=== PATIENT | female | born 1990 | race American Indian/Alaskan Native ===

== ENCOUNTER 2021-09-24 20:50 | Outpatient (CLI) | payer BC, OTHER ==
[2021-09-24 21:30] VITALS: BP 133/80
--- NOTE | 2021-09-24 23:33 | Ultrasound Report ---
ULTRASOUND OBSTETRIC LIMITED ULTRASOUND BIOPHYSICAL PROFILE INDICATION / CLINICAL INFORMATION: well being. Clinical Gestational Age (GA) in weeks, days: 37, 4 TECHNIQUE: Transabdominal. COMPARISON: None available. FINDINGS: BREATHING MOVEMENT = 2 GROSS BODY MOVEMENT = 2 TONE = 2 QUALITATIVE AMNIOTIC FLUID VOLUME = 2 TOTAL BIOPHYSICAL SCORE = 8/8 HEART RATE (beats per minute): 123 PRESENTATION: Cephalic. ADDITIONAL FINDINGS: None. IMPRESSION: 1. Biophysical Score = 8/8 Signer Name: Paolo Berman DO Signed: 09/24/2021 11:29 PM Workstation Name: [id number]
== END 2021-09-24 23:00 | disposition home or self-care (01) ==
LOC: TRG 20:50 → APU 20:52 → TRG 23:00
PROVIDERS: ATTEND Student in an Organized Health Care Education/Training Program
DX: O26.893 Other specified pregnancy related conditions, third trimester (principal); R10.9 Unspecified abdominal pain; Z3A.37 37 weeks gestation of pregnancy
CPT/HCPCS: 76819

== ENCOUNTER 2021-12-21 08:10 | Day surgery (SDC) | payer BC, OTHER ==
[2021-12-21] MEDS ORDERED: SODIUM CHLORIDE 0.9% 1000 ML 1,000 ML ONE (08:35)
--- NOTE | 2021-12-21 08:47 | Anesthesia Day of Surgery ---
Anesthesia Day of Surgery - Day of Surgery Patient Examined: Yes Patient H&P Reviewed: Yes Patient is NPO: Yes
--- NOTE | 2021-12-21 08:48 | Anesthesia Consultation ---
Anesthesia Consult and Med Hx Date of service: 12/21/21 - Airway Anesthetic Teeth Evaluation: Good ROM Head & Neck: Adequate Mental/Hyoid Distance: Adequate Mallampati Class: Class II Intubation Access Assessment: Good - Pre-Operative Health Status ASA Pre-Surgery Classification: ASA1 Proposed Anesthetic Plan: General - Pulmonary Hx Smoking: Yes (Cigerettes now vapes only) Hx Asthma: No Hx Respiratory Symptoms: No SOB: No COPD: No Hx Pneumonia: No Hx Sleep Apnea: No - Cardiovascular System Hx Hypertension: No Hx Coronary Artery Disease: No Hx Heart Attack/AMI: No Hx Angina: No Hx Percutaneous Transluminal Coronary Angioplasty (PTCA): No Hx Cardia Arrhythmia: No Hx Pacemaker: No Hx Internal Defibrillator: No Hx Valvular Heart Disease: No Hx Heart Murmur: No Hx Peripheral Vascular Disease: No - Central Nervous System Hx Neuromuscular Disorder: No Hx Seizures: No CVA: No Hx Back Pain: No Hx Psychiatric Problems: No - Gastrointestinal Hx Ulcer: No Hx Gastroesophageal Reflux Disease: No - Endocrine Hx Renal Disease: No Hx End Stage Renal Disease: No Hx Cirrhosis: No Hx Liver Disease: No Hx Insulin Dependent Diabetes: No Hx Non-Insulin Dependent Diabetes: No Hx Thyroid Disease: No Hx Hypothyroidism: No Hx Hyperthyroidism: No - Hematic Hx Anemia: No Hx Sickle Cell Disease: No - Other Systems Hx Alcohol Use: Yes (wine occas) Hx Substance Use: No Hx Cancer: No Hx Obesity: Yes
--- NOTE | 2021-12-21 08:50 | History and Physical Report ---
History of Present Illness Date of examination: 12/17/21 Date of admission: 12/21/2021 Chief complaint: Here for surgery History of present illness: Patient is a with desire for permanent sterilization presenting for bilateral salpingectomy. Voices no complaints today. Understands this is a permanent procedure and desires to proceed. Denies fevers, chills, chest pain, and SOB. Past History Past Medical History: no pertinent history Past Surgical History: D&C, other (foot) Family/Genetic History: none Social history: no significant social history - Obstetrical History : 6 Medications and Allergies Allergies Allergy/AdvReac Type Severity Reaction Status Date / Time No Known Allergies Allergy Unverified 12/11/21 17:58 Home Medications Medication Instructions Recorded Confirmed Last Taken Type No Known Home Medications [No 12/11/21 12/11/21 Unknown History Reported Home Medications] Active Meds: Active Medications Acetaminophen (Acetaminophen 500 Mg Tab) 1,000 mg PO ONCE ONE Stop: 12/21/21 08:47 Celecoxib (Celecoxib 200 Mg Cap) 400 mg PO PREOP NR Hydromorphone HCl (Hydromorphone 0.5 Mg/0.5 Ml Inj) 0.25 mg IV Q10MIN PRN PRN Reason: Pain, Moderate (4-6) Hydromorphone HCl (Hydromorphone 0.5 Mg/0.5 Ml Inj) 0.5 mg IV Q10MIN PRN PRN Reason: Pain , Severe (7-10) Lactated Ringer's (Lactated Ringers) 1,000 mls @ 125 mls/hr IV DIRECT MARY ALICE Magnesium Oxide (Magnesium Oxide 400 Mg Tab) 400 mg PO ONCE ONE Stop: 12/21/21 08:47 Methocarbamol (Methocarbamol 750 Mg Tab) 1,500 mg PO ONCE ONE Stop: 12/21/21 08:47 Midazolam HCl (Midazolam 2 Mg/2 Ml Inj) 2 mg IV PREOP NR Stop: 12/21/21 23:59 Ondansetron HCl (Ondansetron 4 Mg/2 Ml Inj) 4 mg IV ONCE PRN PRN Reason: Nausea And Vomiting Review of Systems All systems: negative - Physical Exam Abdomen: Positive: normal appearance, soft, normal bowel sounds. Negative: distention, tenderness Extremities: Results Result Diagrams: 12/21/21 09:10 All other labs normal. Assessment and Plan - Patient Problems (1) Encounter for sterilization Current Visit: Yes Status: Acute Plan to address problem: Patient counseled on options for contraception including OCPs, Depo injections, LARCs, abstinence, etc. Desires permanent sterilization via tubal ligation. Risks of procedure reviewed including pain, bleeding, infection, damage to surrounding tissues and structures, and need for further procedures. Type and screen and H/H. To OR for LSC bilateral salpingectomy.
[2021-12-21] MEDS ORDERED: MIDAZOLAM 2 MG/2 ML INJ IV NR (09:00)
[2021-12-21] MEDS ORDERED: LACTATED RINGERS 1,000 ML IV SCH (09:00)
[2021-12-21] MEDS ORDERED: CELECOXIB 200 MG CAP PO NR (09:00)
[2021-12-21 09:28] LABS: Hematocrit 36.7 % (30.3-42.9); Hemoglobin 12.5 gm/dl (10.1-14.3)
[2021-12-21] MEDS ORDERED: BUPIVACAINE/PF (0.5%) 5 MG/1 ML 30 ML VIAL INFILTRATI ONE ×2 (09:29→10:38)
[2021-12-21] MEDS ORDERED: HYDROmorphone 0.5 MG/0.5 ML INJ IV PRN ×2 (09:30)
[2021-12-21] MEDS ORDERED: MAGNESIUM OXIDE 400 MG TAB PO NR (09:30)
[2021-12-21] MEDS ORDERED: ONDANSETRON 4 MG/2 ML INJ IV NR (09:30)
[2021-12-21] MEDS ORDERED: ACETAMINOPHEN 500 MG TAB PO NR (09:30)
[2021-12-21] MEDS ORDERED: HYDROmorphone 0.5 MG/0.5 ML INJ ONE (09:36)
[2021-12-21] MEDS ORDERED: propofoL 200 MG/20 ML VIAL IV ONE (09:36)
[2021-12-21] MEDS ORDERED: ONDANSETRON 4 MG/2 ML INJ ONE (09:36)
[2021-12-21] MEDS ORDERED: ROCURONIUM 50 MG/5 ML INJ IV ONE (09:36)
[2021-12-21] MEDS ORDERED: LIDOCAINE MPF (2%) 20 MG/1 ML VIAL 5 ML ONE (09:36)
[2021-12-21] MEDS ORDERED: SODIUM CHLORIDE 0.9% IRR 1,500 ML BOTTLE IR ONE (10:38)
[2021-12-21] MEDS ORDERED: ePHEDrine SULFATE 50 MG/1 ML INJ ONE (10:42)
[2021-12-21] MEDS ORDERED: GLYCOPYRROLATE 0.4 MG/2 ML INJ ONE ×3 (11:03→11:07)
[2021-12-21] MEDS ORDERED: NEOSTIGMINE 10MG/10 ML INJ MDV ONE (11:03)
[2021-12-21] MEDS ORDERED: dexAMETHasone 20 MG/5 ML VIAL ONE (11:21)
--- NOTE | 2021-12-21 11:27 | Operative Report ---
Operative Report Operative Report: Date of Procedure: December 21, 2021 Preoperative diagnosis: Desire for permanent sterilization Postoperative diagnosis: same, s/p bilateral salpingectomy Procedure: Laparoscopic bilateral salpingectomy Surgeon: Shira Laguna MD [employer] [place]: [place] Anesthesia: General anesthesia Complications: none EBL: Minimal IV Fluids: 850 UOP: 50 ml, clear urine at the beginning of the case Findings: Normal external female genitalia. Normal vaginal epithelium, cervix visualized without lesions. Laparoscopy: Uterus with subcentimeter perforation noted posteriorly hemostatic in nature. Fallopian tubes normal in appearance bilaterally. Ovaries normal in appearance bilaterally. Procedure: Patient taken to the operating room and identified as above. Placed under general anesthesia without difficulty. Placed in dorsolithotomy position and draped in normal sterile fashion. The bladder was drained to 50 cc of clear urine. A sterile speculum was placed into the vagina and the cervix was identified. A tenaculum was placed on the cervix and the uterus was sounded. Tenaculum uterine manipulator was placed into the uterus. Attention was then turned to the abdomen. A Veress needle was used to enter into the abdominal cavity and it was insufflated with CO2 gas. A 5 mm trocar was placed under direct visualization supraumbilically. The cavity was examined and the above findings were noted laparoscopically. A small area along the uterus was noted likely secondary to a uterine perforation from the sound but was hemostatic in nature. No repair was needed. Accessory ports were placed via a 5 cm trocar in the patient's right lower quadrant and an 8 cm trocar in the patient's left lowe r quadrant. The left fallopian tube was grasped and serially ligated and cut to the cornua of the uterus using the LigaSure. Hemostasis was noted. The fallopian tube was removed intact without difficulty. The right fallopian tube was treated in a similar manner and hemostasis noted. Once tubes were removed from the pelvis, it was examined and all areas noted to be hemostatic. All trocars and instruments were removed. Laparoscopic port sites were repaired using 4-0 Monocryl. Dermabond was applied to each site. The uterine manipulator was removed. Patient tolerated procedure well
--- NOTE | 2021-12-21 11:31 | Short Stay Summary ---
Short Stay Documentation Date of service: 12/21/21 Narrative H&P: Patient with desire for permanent sterilization. To OR for laparoscopic bilateral salpingectomy. - History Principal diagnosis: desire for permanent sterilization H&P: dictated Past Medical History: No medical history Past Surgical History: Other (D&C x2, foot surgery ) Social history: no significant social history - Allergies and Medications Current Medications: Allergies No Known Allergies Allergy (Unverified 12/11/21 17:58) Home Medications Medication Instructions Recorded Confirmed Last Taken Type RX: No Known Home Medications [No 12/11/21 12/11/21 Unknown History Reported Home Medications] Active Medications Acetaminophen (Acetaminophen 500 Mg Tab) 1,000 mg PO ONCE NR Stop: 12/21/21 18:00 Celecoxib (Celecoxib 200 Mg Cap) 400 mg PO PREOP NR Stop: 12/21/21 18:00 Hydromorphone HCl (Hydromorphone 0.5 Mg/0.5 Ml Inj) 0.25 mg IV Q10MIN PRN PRN Reason: Pain, Moderate (4-6) Stop: 12/21/21 18:00 Hydromorphone HCl (Hydromorphone 0.5 Mg/0.5 Ml Inj) 0.5 mg IV Q10MIN PRN PRN Reason: Pain , Severe (7-10) Stop: 12/21/21 18:00 Lactated Ringer's (Lactated Ringers) 1,000 mls @ 125 mls/hr IV DIRECT MARY ALICE Magnesium Oxide (Magnesium Oxide 400 Mg Tab) 400 mg PO ONCE NR Stop: 12/21/21 18:00 Methocarbamol (Methocarbamol 750 Mg Tab) 1,500 mg PO ONCE NR Stop: 12/21/21 18:00 Midazolam HCl (Midazolam 2 Mg/2 Ml Inj) 2 mg IV PREOP NR Stop: 12/21/21 23:59 Ondansetron HCl (Ondansetron 4 Mg/2 Ml Inj) 4 mg IV ONCE NR Stop: 12/21/21 23:59 - Physical exam General appearance: no acute distress Gastrointestinal: normal Female Genitourinary: normal Extremities: no ischemia, No edema - Hospital course Hospital course: To OR for laparoscopic bilateral salpingectomy. See operative report for additional details. Patient tolerated procedure well. Stable for discharge home on POD #0. - Discharge Diagnoses (1) Encounter for sterilization Status: Acute Short Stay Discharge Plan Activity: advance as tolerated (Nothing in the vagina for 2-4 weeks) Weight Bearing Status: Full Weight Bearing Diet: regular Wound: keep clean and dry Additional Instructions: [] Smoking cessation referral if applicable(refer to patient education folder for contact #) [] Refer to [facility] Booklet Call your doctor immediately for: * Fever > 100.5 * Heavy vaginal bleeding ( >1 pad per hour) * Severe persistent headache * Shortness of breath * Drainage or odor from incision. * Keep incision clean and dry at all times and follow doctor's instructions regarding bathing/showering Follow up with: ARMEN ENRIQUE MD [Primary Care Provider] - 7 Days
[2021-12-21 14:18] VITALS: BP 125/72
--- NOTE | 2021-12-21 16:35 | Post Anesthesia Evaluation ---
- Post Anesthesia Evaluation Patient Participated: Yes Airway Patent: Yes Stable Respiratory Function: Yes Nausea/Vomiting: No Temp > 96.8F: Yes Pain Manageable: Yes Adequeate Hydration: Yes Anesthesia Complications: No Block Receding Appropriately: Not Applicable Patient on Ventilator: No
== END 2021-12-21 08:11 | disposition home or self-care (01) ==
LOC: OR 08:10
PROVIDERS: ATTEND Student in an Organized Health Care Education/Training Program
DX: Z30.2 Encounter for sterilization (principal); F17.210 Nicotine dependence, cigarettes, uncomplicated; E66.9 Obesity, unspecified; Z79.899 Other long term (current) drug therapy; Z68.34 Body mass index [BMI] 34.0-34.9, adult; Z72.89 Other problems related to lifestyle; Z98.890 Other specified postprocedural states; Z83.3 Family history of diabetes mellitus; Z82.49 Family history of ischemic heart disease and other diseases of the circulatory system
CPT/HCPCS: 36415; 58670; 81025; 85014; 85018; 86850; 86900; 86901; 88302; J1100; J1170; J1815; J2250; J2405; J2704; J2710; J3490; J7030